=== PATIENT | male | born 1980 | race Hispanic/Latino ===

== ENCOUNTER 2016-10-18 07:58 | Emergency (ER) | payer OTHER ==
[2016-10-18 08:07] VITALS: BP 119/73
[2016-10-18] MEDS ORDERED: MOTRIN PO ONE (08:49)
--- NOTE | 2016-10-18 09:02 | XRay Report ---
Left ankle: Swelling. There is moderate soft tissue swelling predominantly over the lateral side of the ankle. No underlying fracture or displacement identified. The bones are well-mineralized. Plantar and Achilles spurs present. Impression: Apparent soft tissue injury. Normal bones and joint.
--- NOTE | 2016-10-18 09:17 | Emergency Department Report ---
ED Lower Extremity HPI - General Chief Complaint: Extremity Injury, Lower Stated Complaint: LT ANKLE INJURY Time Seen by Provider: 10/18/16 08:37 Source: patient Mode of arrival: Ambulatory Limitations: No Limitations - History of Present Illness Initial Comments: 36-year-old male presents with complaint of left ankle pain status post walking into a pot hole on the sidewalk yesterday. Patient states that he has been limping on his left ankle since. Denies any other injuries. History of broken ankle previously many years ago. Complaint: ankle injury Onset/Timin -: days(s) Injury: Ankle: Left (stepped into pothole yesterday, no foot pain reported) Severity: moderate Severity scale (0 -10): 5 Worsens With: nothing - Related Data Previous Rx's Medication Instructions Recorded Last Taken Type Naproxen [Naprosyn TAB] 500 mg PO BID PRN #25 tablet 10/18/16 Unknown Rx Allergies Allergy/AdvReac Type Severity Reaction Status Date / Time No Known Allergies Allergy Unverified 10/18/16 08:03 ED Review of Systems ROS: Stated complaint: LT ANKLE INJURY Other details as noted in HPI Constitutional: denies: chills, fever Eyes: denies: eye pain, eye discharge, vision change ENT: denies: ear pain, throat pain Respiratory: denies: cough, shortness of breath, wheezing Cardiovascular: denies: chest pain, palpitations Endocrine: no symptoms reported Gastrointestinal: denies: abdominal pain, nausea, diarrhea Genitourinary: denies: urgency, dysuria Musculoskeletal: denies: back pain, joint swelling, arthralgia Skin: denies: rash, lesions Neurological: denies: headache, weakness, paresthesias Psychiatric: denies: anxiety, depression Hematological/Lymphatic: denies: easy bleeding, easy bruising ED Past Medical Hx - Past Medical History Previous Medical History?: No - Surgical History Past Surgical History?: No - Social History Smoking Status: Current Every Day Smoker Substance Use Type: Alcohol, Marijuana - Medications Home Medications: Home Medications Medication Instructions Recorded Confirmed Last Taken Type Naproxen [Naprosyn TAB] 500 mg PO BID PRN #25 tablet 10/18/16 Unknown Rx ED Physical Exam - General Limitations: No Limitations General appearance: alert, in no apparent distress - Head Head exam: Present: atraumatic, normocephalic - Eye Eye exam: Present: normal appearance, PERRL, EOMI - ENT ENT exam: Present: mucous membranes moist - Neck Neck exam: Present: normal inspection - Respiratory Respiratory exam: Present: normal lung sounds bilaterally. Absent: respiratory distress - Cardiovascular Cardiovascular Exam: Present: regular rate, normal rhythm. Absent: systolic murmur, diastolic murmur, rubs, gallop - GI/Abdominal GI/Abdominal exam: Present: soft, normal bowel sounds - Rectal Rectal exam: Present: deferred - Extremities Exam Extremities exam: Present: normal inspection - Expanded Lower Extremity Exam Left Upper Leg exam: Present: normal inspection, full ROM Knee exam: Present: normal inspection, full ROM Lower Leg exam: Present: normal inspection, full ROM Ankle exam: Present: tenderness (mild lateral mallelar tenderness, goo distal dosralsi pedia and posterior tibial pulses) Foot/Toe exam: Present: normal inspection, full ROM Neuro vascular tendon exam: Present: no vascular compromise Gait: Positive: observed and normal 1 - pain on palpation here, mild swelling - Back Exam Back exam: Present: normal inspection - Neurological Exam Neurological exam: Present: alert, oriented X3, CN II-XII intact, normal gait - Psychiatric Psychiatric exam: Present: normal affect, normal mood - Skin Skin exam: Present: warm, dry, intact, normal color. Absent: rash ED Course Vital Signs 10/18/16 10/18/16 08:04 08:55 Temperature 97.7 F Pulse Rate 57 L Respiratory 16 16 Rate Blood Pressure 119/73 O2 Sat by Pulse 98 Oximetry ED Lower Extremity MDM - Medical Decision Making A/P: Ankle sprain 1-x-ray shows no fractures. Distal pulses and sensation intact no lacerations 2-Augie wrap, air stirrup splint, naproxen when necessary, follow-up with orthopedics 3- pt fully ambulatory upon discharge Critical care attestation.: If time is entered above; I have spent that time in minutes in the direct care of this critically ill patient, excluding procedure time. ED Disposition Clinical Impression: Ankle sprain Qualifiers: Encounter type: initial encounter Involved ligament of ankle: tibiofibular ligament Laterality: left Qualified Code(s): S93.432A - Sprain of tibiofibular ligament of left ankle, initial encounter Disposition: DISCHARGED TO HOME OR SELFCARE Is pt being admited?: No Does the pt Need Aspirin: No Condition: Stable Instructions: Ankle Sprain (ED), Ankle Stirrup Splint (ED), RICE Therapy (ED) Prescriptions: Naproxen [Naprosyn TAB] 500 mg PO BID PRN #25 tablet PRN Reason: Pain Referrals: SHONA RODRIGUEZ MD [Staff Physician] - 3-5 Days Forms: Work/School Release Form(ED)
== END 2016-10-18 09:22 | disposition home or self-care (01) ==
LOC: ED 07:58
DX: S93.432A Sprain of tibiofibular ligament of left ankle, initial encounter (principal); F17.200 Nicotine dependence, unspecified, uncomplicated; F12.10 Cannabis abuse, uncomplicated